=== PATIENT | male | born 1940 | race Caucasian/White ===

== ENCOUNTER 2019-01-20 15:45 | Emergency (ER) | payer MEDICARE ==
[2019-01-20] MEDS ORDERED: SODIUM CHLORIDE 0.9% 1,000ML IVBOLUS ONE (16:00)
[2019-01-20] MEDS ORDERED: SODIUM CHLORIDE FLUSH 10ML SYR IVF ONE (16:00)
--- NOTE | 2019-01-20 16:03 | NUR ---
PT LAYING BACK IN BED, RESPIRATIONS EVEN AND UNLABORED ON RA. PER EMS, PT C/O DIZZINESS WHICH HAS SINCE RESOLVED BUT PT REMAINS HYPOTENSIVE. PT DENIES PAIN. AT BEDSIDE. AWAITING LABS AND EKG.
[2019-01-20 16:22] LABS: BASOPHILS # (AUTO) 0.03 x10^3/uL (0-0.1); BASOPHILS % (AUTO) 0 % (0-1); EOSINOPHILS # (AUTO) 0.17 x10^3/uL (0-0.4); EOSINOPHILS % (AUTO) 3 % (1-7); LYMPHOCYTES # (AUTO) 1.17 x10^3/uL (1-3.4); LYMPHOCYTES % (AUTO) 17 % (22-44); MD NO; MEAN CORPUSCULAR HGB CONC 32.6 g/dL (33.2-36.2); MEAN CORPUSCULAR VOLUME 92.1 fL (81-97); MEAN PLATELET VOLUME 6.7 fL (7.4-10.4); MONOCYTES # (AUTO) 0.39 x10^3/uL (0.2-0.8); MONOCYTES % (AUTO) 6 % (2-9); NEUTROPHILS # (AUTO) 5.28 x10^3/uL (1.8-6.8); NEUTROPHILS % (AUTO) 75 % (42-75); PLATELET COUNT 274 x10^3/uL (130-400); RED BLOOD COUNT 4.93 x10^6/uL (4.38-5.82); RED CELL DISTRIBUTION WIDTH 13.6 % (9.4-14.8)
[2019-01-20] MEDS ORDERED: GINK120T3 PO (16:31)
[2019-01-20] MEDS ORDERED: LISI-167 PO (16:31)
[2019-01-20] MEDS ORDERED: LORA10TA62 PO (16:31)
[2019-01-20] MEDS ORDERED: FOLI1TAB5 PO (16:31)
[2019-01-20] MEDS ORDERED: CALC-557 PEG (16:31)
[2019-01-20] MEDS ORDERED: [UNRECOGNIZED DRUG - OTHER] (16:31)
[2019-01-20] MEDS ORDERED: DONE5TAB7 PO (16:31)
[2019-01-20] MEDS ORDERED: MEMA10TA PO (16:31)
[2019-01-20] MEDS ORDERED: EMPA10TA PO (16:31)
[2019-01-20] MEDS ORDERED: MAGN400T36 PEG (16:31)
[2019-01-20] MEDS ORDERED: TAMS-11 PO (16:31)
[2019-01-20] MEDS ORDERED: INSU300I SQ (16:31)
[2019-01-20] MEDS ORDERED: B CO1TAB14 PO (16:31)
[2019-01-20] MEDS ORDERED: ASPI-496 PO (16:31)
[2019-01-20] MEDS ORDERED: OMEP40CA6 PO (16:31)
[2019-01-20] MEDS ORDERED: CHOL2000 PO (16:31)
[2019-01-20] MEDS ORDERED: GLIP10TA13 PO (16:31)
[2019-01-20] MEDS ORDERED: LORA-439 PO (16:31)
[2019-01-20 16:32] LABS: ALBUMIN 3.5 g/dL (3.4-5.0); ANION GAP 8 mmol/L (5-15); CALCIUM 9.2 mg/dL (8.5-10.1); CHLORIDE 107 mmol/L (98-107); CREATININE 2.28 mg/dL (0.7-1.3)
--- NOTE | 2019-01-20 17:52 | NUR ---
PT RESTING QUIETLY ON BED, SIDE RAILS UP X2, IV INFUSING AT FAST TKO; SITE PATENT, CALL LIGHT W/IN REACH, SPOUSE IN ROOM.
--- NOTE | 2019-01-20 18:13 | NUR ---
NS INFUSION CHECKED; LINE W-O, IV SITE (HAND) PATENT, PT HAS HANDS CROSSED. ASKED PT TO AVOID PUTTING PRESSURE ON IV SITE.
[2019-01-20 19:24] VITALS: BP 122/56
== END 2019-01-20 20:00 | disposition home or self-care (01) ==
LOC: ED 19:30
DX: I95.1 Orthostatic hypotension (principal); R42 Dizziness and giddiness; E78.00 Pure hypercholesterolemia, unspecified; I10 Essential (primary) hypertension; E11.9 Type 2 diabetes mellitus without complications
CPT/HCPCS: 36415; 80048; 82040; 85025; 93005; 96360; 96361; 99284; J7030